=== PATIENT | male | born 1940 | race Two or more races ===

== ENCOUNTER 2018-08-21 10:57 | Emergency (ER) | payer MEDICAID, MEDICARE, OTHER ==
[~2018-08-21] VITALS: Ht 167.6 cm; Wt 73.0 kg
[2018-08-21] MEDS ORDERED: ONDANSETRON HCL 4MG/2ML INJ IV STA (11:07)
[2018-08-21] MEDS ORDERED: SODIUM CHLORIDE 0.9% 1,000 ML IV ONE (11:07)
[2018-08-21] MEDS ORDERED: MORPHINE SULFATE 4 MG/ML CPJ (NOT FOR IM USE) IV STA (11:07)
[2018-08-21 11:39] LABS: BASOPHILS % 0.4 % (0.0-2.0); EOSINOPHILS % 0.3 % (0.0-5.0); HEMATOCRIT. 42.5 % (42.0-52.0); HEMOGLOBIN. 13.8 g/dL (14.0-18.0); LYMPHOCYTES % 10.3 % (20.0-50.0); MEAN CORPUSCULAR HEMOGLOBIN 29.9 pg (28.0-32.0); MEAN CORPUSCULAR VOLUME 92.2 fL (80.0-94.0); MEAN PLATELET VOLUME 8.9 fl (7.4-10.4); MONOCYTES % 11.7 % (2.0-8.0); NEUTROPHILS % 77.3 % (40.0-76.0); PLATELET 149 x1000/uL (130-400); RED BLOOD CELL COUNT 4.61 mill/uL (4.7-6.1); RED CELL DISTRIBUTION WIDTH 15.4 % (11.6-14.6)
[2018-08-21 11:45] LABS: CHLORIDE 98 mEq/L (98-107); INR 1.1; PARTIAL THROMBOPLASTIN TIME 30.3 sec (23.4-31.0); PROTHROMBIN TIME 11.4 sec (9.1-11.1)
[2018-08-21 12:25] LABS: ETHANOL BLOOD < 10 mg/dL
[2018-08-21] MEDS ORDERED: PIPERACILLIN/TAZ 3.375G PREMIX 50 ML IV ONE (14:15)
[2018-08-21] MEDS ORDERED: ACETAMINOPHEN 325MG TABLET PO ONE (14:15)
[2018-08-21 20:01] VITALS: BP 104/56
== END 2018-08-21 20:15 | disposition short-term general hospital (02) ==
LOC: ER 11:41 → CANBEDREQ 23:45
DX: S52.611A Displaced fracture of right ulna styloid process, initial encounter for closed fracture (principal); S72.141A Displaced intertrochanteric fracture of right femur, initial encounter for closed fracture; E87.8 Other disorders of electrolyte and fluid balance, not elsewhere classified; F17.200 Nicotine dependence, unspecified, uncomplicated; F10.10 Alcohol abuse, uncomplicated; Y08.89XA Assault by other specified means, initial encounter; Y93.89 Activity, other specified; Y92.89 Other specified places as the place of occurrence of the external cause; Y99.8 Other external cause status; Y90.9 Presence of alcohol in blood, level not specified
CPT/HCPCS: 36415; 70450; 71045; 73090; 73130; 73521; 80053; 83880; 84484; 85025; 85610; 85730; 86850; 86900; 86901; 87040; 93005; 96365; 96366; 96375; 99285; G0482; J2270; J2405; J2543; J7030

== ENCOUNTER 2019-06-21 17:53 | Emergency (ER) | payer OTHER ==
[~2019-06-21] VITALS: Ht 170.2 cm; Wt 68.0 kg
[2019-06-21 19:10] LABS: HEMATOCRIT. 39.5 % (42.0-52.0); HEMOGLOBIN. 13.1 g/dL (14.0-18.0); MEAN CORPUSCULAR HEMOGLOBIN 30.5 pg (28.0-32.0); MEAN CORPUSCULAR VOLUME 92.4 fL (80.0-94.0); MEAN PLATELET VOLUME 9.1 fl (7.4-10.4); PLATELET 170 x1000/uL (130-400); RED BLOOD CELL COUNT 4.28 mill/uL (4.7-6.1)
[2019-06-21 19:14] LABS: CHLORIDE 104 mEq/L (98-107)
[2019-06-21 19:18] LABS: ETHANOL BLOOD < 10 mg/dL
[2019-06-21 19:23] LABS: CREATINE KINASE 216 IU/L (39-308)
[2019-06-21 19:30] LABS: PLATELET ESTIMATE NORMAL
[2019-06-21] MEDS ORDERED: VANCOMYCIN 1 G PREMIX 200 ML IV ONE (21:30)
[2019-06-21] MEDS ORDERED: FUROSEMIDE 40MG/4ML VIAL IVP ONE (21:30)
[2019-06-21] MEDS ORDERED: PIPERACILLIN/TAZ 3.375G PREMIX 50 ML IV ONE (21:30)
[2019-06-21 22:50] VITALS: BP 117/70
== END 2019-06-21 23:30 | disposition short-term general hospital (02) ==
LOC: ER 18:08 → CANBEDREQ 06-22 01:27
DX: S12.120A Other displaced dens fracture, initial encounter for closed fracture (principal); W06.XXXA Fall from bed, initial encounter; Y93.89 Activity, other specified; Y92.89 Other specified places as the place of occurrence of the external cause; Y99.8 Other external cause status; I50.9 Heart failure, unspecified; J18.9 Pneumonia, unspecified organism; R09.02 Hypoxemia
CPT/HCPCS: 36415; 70450; 71045; 72125; 80053; 80320; 82140; 82550; 82962; 83605; 83690; 83880; 84484; 85025; 93005; 96365; 96375; 99291; J1940; J2543; J3370; L0172; G0480

== ENCOUNTER 2019-07-14 08:49 | Emergency (ER) | payer OTHER ==
[~2019-07-14] VITALS: Ht 165.1 cm; Wt 64.0 kg
[2019-07-14] MEDS ORDERED: ACETAMINOPHEN 325MG TABLET PO ONE (09:15)
[2019-07-15] MEDS ORDERED: SODIUM CHLORIDE 0.9% 1,000 ML IV ONE (14:46)
[2019-07-15] MEDS ORDERED: MORPHINE SULFATE 4 MG/ML CPJ (NOT FOR IM USE) IV STA (17:09)
[2019-07-15] MEDS ORDERED: ONDANSETRON HCL 4MG/2ML INJ IV STA (17:09)
[2019-07-15 17:26] VITALS: BP 124/59
== END 2019-07-15 17:45 | disposition short-term general hospital (02) ==
LOC: ER 08:49
DX: S12.111A Posterior displaced Type II dens fracture, initial encounter for closed fracture (principal); M54.2 Cervicalgia; M54.6 Pain in thoracic spine; W18.39XA Other fall on same level, initial encounter; Y93.89 Activity, other specified; Y92.89 Other specified places as the place of occurrence of the external cause; Y99.8 Other external cause status
CPT/HCPCS: 70450; 71045; 72070; 72125; 72141; 96374; 96375; 99285; J2270; J2405; J7030

== ENCOUNTER 2019-07-30 18:19 | Emergency (ER) | payer OTHER ==
[~2019-07-30] VITALS: Ht 175.3 cm; Wt 73.0 kg
[2019-07-31 00:54] LABS: BG CARBOXYHEMOGLOBIN 3.1 % (0.5-1.5); BG DEOXYHEMOGLOBIN 3.3 % (0.0-5.0); BG FRACTION INSPIRED OXYGEN 32; BG HCO3 ACT 27.7 mmol/L (22.0-26.0); BG METHEMOGLOBIN 0.2 % (0.0-1.5); BG OXYGEN SATURATION 96.6 % (92.0-98.5); BG OXYHEMOGLOBIN 93.4 % (94.0-97.0); BG PCO2 47.6 mmHg (35.0-45.0); BG PH 7.383 (7.350-7.450); BG PO2 90.8 mmHg (75.0-100.0); BG SAMPLE SITE RIGHT RADIAL; BG TOTAL HEMOGLOBIN 14.3 g/dL (12.0-18.0); BG VENT MODE NASAL CANNULA
[2019-07-31 00:56] LABS: BASOPHILS % 0.6 % (0.0-2.0); EOSINOPHILS % 1.9 % (0.0-5.0); HEMATOCRIT. 41.2 % (42.0-52.0); HEMOGLOBIN. 13.6 g/dL (14.0-18.0); LYMPHOCYTES % 8.6 % (20.0-50.0); MEAN CORPUSCULAR HEMOGLOBIN 29.8 pg (28.0-32.0); MEAN CORPUSCULAR VOLUME 90.1 fL (80.0-94.0); MEAN PLATELET VOLUME 8.2 fl (7.4-10.4); MONOCYTES % 6.4 % (2.0-8.0); NEUTROPHILS % 82.5 % (40.0-76.0); PLATELET 207 x1000/uL (130-400); RED BLOOD CELL COUNT 4.57 mill/uL (4.7-6.1); RED CELL DISTRIBUTION WIDTH 14.8 % (11.6-14.6)
[2019-07-31 01:03] LABS: CHLORIDE 101 mEq/L (98-107)
[2019-07-31 05:02] VITALS: BP 113/61
== END 2019-07-31 05:40 | disposition short-term general hospital (02) ==
LOC: ER 18:19 → CANBEDREQ 07-31 07:44
DX: M54.2 Cervicalgia (principal); J84.9 Interstitial pulmonary disease, unspecified; G93.49 Other encephalopathy; F17.210 Nicotine dependence, cigarettes, uncomplicated; Z91.81 History of falling; Z90.49 Acquired absence of other specified parts of digestive tract; Z98.890 Other specified postprocedural states
CPT/HCPCS: 36415; 36600; 71045; 80053; 82375; 82805; 83880; 84484; 85025; 93005; 99285

== ENCOUNTER 2019-08-12 20:21 | Emergency (ER) | payer MEDICARE, OTHER ==
[~2019-08-12] VITALS: Ht 175.3 cm; Wt 77.0 kg
[2019-08-12] MEDS ORDERED: IBUPROFEN 600MG TABLET PO ONE (23:15)
[2019-08-12] MEDS ORDERED: ACETAMINOPHEN 500MG TABLET PO ONE (23:15)
[2019-08-13] MEDS ORDERED: CEFTRIAXONE 1 G PREMIX 50 ML IV ONE (01:00)
[2019-08-13] MEDS ORDERED: AZITHROMYCIN 500 MG in DEXT 5% WATER 250 ML IV SCH (01:00)
[2019-08-13 01:10] LABS: CLARITY URINE CLEAR (CLEAR); COLOR URINE YELLOW (YELLOW); KETONES URINE NEGATIVE (NEGATIVE); LEUKOCYTE ESTERASE URINE NEGATIVE (NEGATIVE); NITRITE URINE NEGATIVE (NEGATIVE); OCCULT BLOOD URINE NEGATIVE (NEGATIVE); PH URINE 5.5 (4.5-8.0); PROTEIN URINE NEGATIVE (NEGATIVE); SPECIFIC GRAVITY URINE 1.015 (1.005-1.030)
[2019-08-13 01:12] LABS: BASOPHILS % 0.6 % (0.0-2.0); EOSINOPHILS % 2.7 % (0.0-5.0); HEMATOCRIT. 44.8 % (42.0-52.0); HEMOGLOBIN. 14.5 g/dL (14.0-18.0); LYMPHOCYTES % 20.6 % (20.0-50.0); MEAN CORPUSCULAR HEMOGLOBIN 29.1 pg (28.0-32.0); MEAN CORPUSCULAR VOLUME 89.7 fL (80.0-94.0); MEAN PLATELET VOLUME 8.3 fl (7.4-10.4); MONOCYTES % 7.6 % (2.0-8.0); NEUTROPHILS % 68.5 % (40.0-76.0); PLATELET 216 x1000/uL (130-400); RED BLOOD CELL COUNT 4.99 mill/uL (4.7-6.1); RED CELL DISTRIBUTION WIDTH 14.5 % (11.6-14.6)
[2019-08-13 01:18] LABS: CHLORIDE 103 mEq/L (98-107)
[2019-08-13 01:19] LABS: INR 1.1; PROTHROMBIN TIME 10.8 sec (9.6-11.0)
[2019-08-13 03:05] VITALS: BP 109/64
== END 2019-08-13 03:09 | disposition home or self-care (01) ==
LOC: ER 20:21
DX: J18.9 Pneumonia, unspecified organism (principal); F17.200 Nicotine dependence, unspecified, uncomplicated; Z90.49 Acquired absence of other specified parts of digestive tract
CPT/HCPCS: 36415; 71045; 80053; 81003; 83880; 85025; 85610; 87040; 87804; 96365; 99284; J0456; J0696; J7060

== ENCOUNTER 2020-02-12 19:32 | Emergency (ER) | payer MEDICARE, MEDICAID ==
[~2020-02-12] VITALS: Ht 177.8 cm; Wt 59.0 kg
[~2020-02-12 19:32] MED LIST: ALBU18HF2 IH; FLUT1DIS3 INH; IPRA3AMP9 NEB; MED4 MT
[2020-02-12] MEDS ORDERED: HYDROCODONE/ACETAMINOPHEN 5/325MG TABLET PO ONE (20:30)
[2020-02-13 00:15] VITALS: BP 99/57
== END 2020-02-13 00:53 | disposition home or self-care (01) ==
LOC: ER 19:32
DX: M25.552 Pain in left hip (principal); E11.9 Type 2 diabetes mellitus without complications; I10 Essential (primary) hypertension; Z86.19 Personal history of other infectious and parasitic diseases; Z87.81 Personal history of (healed) traumatic fracture; W06.XXXA Fall from bed, initial encounter; Y93.89 Activity, other specified; Y92.013 Bedroom of single-family (private) house as the place of occurrence of the external cause
CPT/HCPCS: 73502; 99283